=== PATIENT | female | born 1985 | race Caucasian/White ===

== ENCOUNTER 2017-11-21 15:13 | Inpatient (IN) ==
[2017-11-21] MEDS ORDERED: Ipratropium/Albuterol Neb 3 ML IH ONE ×2 (15:30→15:32)
[2017-11-21] MEDS ORDERED: methylPREDNISolone 125 MG/2 ML VIAL IVP ONE (15:30)
[2017-11-21] MEDS ORDERED: 0.9 % Sodium Chloride 1,000 ML IVC ONE ×2 (15:30→16:15)
[2017-11-21] MEDS ORDERED: Levofloxacin 750 MG/150 ML 750 MG/150 ML BAG IVPB ONE (15:57)
[2017-11-21] MEDS ORDERED: Isovue-370 500 ML INFUS..BTL IV ONE (15:57)
--- NOTE | 2017-11-21 16:15 | Emergency Department Note ---
Disposition Clinical Impression: Sepsis Qualifiers: Sepsis type: sepsis due to unspecified organism Qualified Code(s): A41.9 - Sepsis, unspecified organism Disposition: Admitted As Inpatient Referrals: Les Lane MD [Primary Care Provider] - General Adult HPI - General Chief complaint: ED Shortness of Breath/Dyspnea Stated complaint: IVÁN,Asthma Time Seen by Provider: 11/21/17 15:16 Source: patient Limitations: no limitations - History of Present Illness Pain Scale: 9 - Related Data Allergies Allergy/AdvReac Type Severity Reaction Status Date / Time cephalexin [From Keflex] Allergy Rash Verified 11/21/17 15:17 Hydromorphone [From Dilaudid] Allergy Anaphylaxis Verified 11/21/17 15:17 Penicillins [PCN] Allergy Rash Verified 11/21/17 15:17 Sulfa (Sulfonamide Allergy Rash Verified 11/21/17 15:17 Antibiotics) sulfamethoxazole Allergy Nausea Verified 11/21/17 15:17 [From Bactrim] trimethoprim [From Bactrim] Allergy Nausea Verified 11/21/17 15:17 Past Medical History - Past Medical History Medical history: Reports: asthma, diabetes, GERD, hyperlipidemia, syncope, other Psychiatric history: Reports: panic disorder 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 history: Reports: polycystic ovary syndrome - Social History Smoking Status: Never smoker Smokeless Tobacco Status: No Alcohol use: Reports: none Drug use: Reports: none Physical Exam - General Limitations: no limitations General appearance: alert, in no apparent distress Course Vital Signs Temperature 100.8 F H 11/21/17 15:16 Pulse Rate 125 11/21/17 15:16 Respiratory Rate 24 11/21/17 15:16 Blood Pressure 115/83 11/21/17 15:16 O2 Sat by Pulse Oximetry 90 11/21/17 15:16 Temperature 100.8 F H 11/21/17 15:59 Pulse Rate 125 11/21/17 15:59 Respiratory Rate 24 11/21/17 15:59 Blood Pressure 115/83 11/21/17 15:59 O2 Sat by Pulse Oximetry 93 11/21/17 16:08 Oxygen Delivery Oxygen Delivery Room Air Attestation Statement - Attestation Attestation: I examined this patient and my medical decision-making was reviewed with the Resident Physician. I agree with the documented findings, disposition and treatment plan as described except to the extent set forth below. 32 year old femael with history of asthma presents to the ED with complaints of dyspnea on exertional and fever of 103 at home and is febrile here today at 100.8 and states that she has been coughign and currently recovering from a right ear infection with levquin and is a borderline diabetic. Her right ear no longer hurts but she has been experincing icnreased cough and is wheezing. Patient states that she tried to take her daughgter neb treatments at home without help and took children motrin for therapy. Pamela states that she has not been recently admitted. She meets SIRS criteria and source is likely pumonary. She will be admitted to medicine, IVF and ABX starrted.
--- NOTE | 2017-11-21 16:16 | Emergency Department Note ---
Disposition Clinical Impression: Asthma with exacerbation Qualifiers: Asthma severity: severe Asthma persistence: persistent Qualified Code(s): J45.51 - Severe persistent asthma with (acute) exacerbation Sepsis Qualifiers: Sepsis type: sepsis due to unspecified organism Qualified Code(s): A41.9 - Sepsis, unspecified organism Disposition: Admitted As Inpatient Condition: Fair Referrals: Les Lane MD [Primary Care Provider] - Time of Disposition: 19:19 SOB HPI - General Chief Complaint: ED Shortness of Breath/Dyspnea Stated Complaint: IVÁN,Asthma Time Seen by Provider: 11/21/17 15:16 Nursing Notes Reviewed: Yes Vital Signs Reviewed: Yes - History of Present Illness 32-year-old female with severe persistent asthma presents with 2 day history of difficulty in breathing. She states that she had an asthma attack last night. She was unable to find her rescue inhaler. She used her daughter's nebulizer treatments. She had a fever of 103 at that point in time and took Motrin which relieved the fever. She woke up this morning and felt fine for one hour, but then had another episode of difficulty breathing. She took her temperature and it was 105. She was unable to swallow oral medications this point time, so she did Children's Motrin. She used her daughter's nebulizer treatments and that made her way to the emergency department. She was seen at [facility] on Monday and diagnosed with an ear infection on started on oral Levaquin. She is experiencing burning in her eyes and tearing "when my temperature goes up." She has chest pain due to the difficulty in breathing. She has a cough and feels like she needs to cough something up that he get stuck at the top of her throat. - Related Data Home Medications Medication Instructions Recorded Confirmed Esomeprazole Magnesium [Nexium] 40 mg PO DAILY 11/21/17 11/21/17 Fluticasone/Salmeterol [Advair 1 puff IH BID 11/21/17 11/21/17 250-50 Diskus] Gabapentin [Neurontin] 300 mg PO Q8H PRN 11/21/17 11/21/17 Meloxicam [Mobic] 7.5 mg PO Q12H 11/21/17 11/21/17 Mirabegron [Myrbetriq] 50 mg PO DAILY 11/21/17 11/21/17 Montelukast [Singulair] 10 mg PO DAILY 11/21/17 11/21/17 Multivit-Min/Iron/Folic/Lutein 1 tab PO DAILY 11/21/17 11/21/17 [Centrum Silver Women Tablet] Tiotropium [Spiriva] 1 puff IH DAILY 11/21/17 11/21/17 Allergies Allergy/AdvReac Type Severity Reaction Status Date / Time cephalexin [From Keflex] Allergy Rash Verified 11/21/17 15:17 Hydromorphone [From Dilaudid] Allergy Anaphylaxis Verified 11/21/17 15:17 Penicillins [PCN] Allergy Rash Verified 11/21/17 15:17 Sulfa (Sulfonamide Allergy Rash Verified 11/21/17 15:17 Antibiotics) sulfamethoxazole Allergy Nausea Verified 11/21/17 15:17 [From Bactrim] trimethoprim [From Bactrim] Allergy Nausea Verified 11/21/17 15:17 Constitutional: Reports: fever Eyes: Reports: other (burning, tearing) ENT ED: Denies: ear pain (resolved) Cardiovascular: Reports: chest pain Respiratory: Reports: cough, dyspnea. Denies: sputum production Gastrointestinal: Reports: diarrhea (chronic). Denies: abdominal pain, nausea, vomiting, constipation Genitourinary: Denies: dysuria, hematuria Integumentary: Denies: rash Neurological: Reports: headache, other (dizziness, presyncope) Past Medical History - Past Medical History Medical history: Reports: asthma, diabetes, GERD, hyperlipidemia, syncope, other Psychiatric history: Reports: panic disorder - Social History Smoking Status: Never smoker Smokeless Tobacco Status: No Alcohol use: Reports: none Drug use: Reports: none Physical Exam - General Limitations: no limitations General appearance: alert, in no apparent distress - Head Head exam: atraumatic, normocephalic, normal inspection - Eye Eye exam: Absent: normal appearance (tearing) - ENT ENT exam: mucous membranes moist - Neck Neck exam: Present: normal inspection - Chest Chest inspection: Present: normal inspection - Respiratory Respiratory exam: Present: respiratory distress (mild ), wheezes, prolonged expiratory phase, other (decreased breath sounds [due to limited air flow]) - Cardiovascular Cardiovascular exam: Present: normal rhythm, tachycardia - Abdominal Exam Abdominal exam: Present: soft, Non-Tender. Absent: tenderness, distention, guarding, rebound, rigidity - Extremities Exam Extremities exam: Present: normal inspection, other (posterior tibial pulses +2/ 4). Absent: pedal edema - Neurological Exam Neurological exam: Present: alert, oriented X3 - Psychiatric Psychiatric exam: Present: normal affect, normal mood - Skin Skin exam: Present: warm, dry, intact, normal color Course Vital Signs Temperature 100.8 F H 11/21/17 15:16 Pulse Rate 125 11/21/17 15:16 Respiratory Rate 24 11/21/17 15:16 Blood Pressure 115/83 11/21/17 15:16 O2 Sat by Pulse Oximetry 90 11/21/17 15:16 Temperature 100.8 F H 11/21/17 15:16 Pulse Rate 125 11/21/17 15:16 Respiratory Rate 24 11/21/17 15:16 Blood Pressure 115/83 11/21/17 15:16 O2 Sat by Pulse Oximetry 90 11/21/17 15:16 Oxygen Delivery Oxygen Delivery Room Air Shortness of Breath/Dyspnea - MDM Narrative Medical decision making narrative: 32 yo female with PMH of severe persistent asthma presents for asthma attacks x3 in the past 2 days with fever, Tmax 105. She is tachycardic, tachypneic, and hypoxic (O2 sat drops to 88% with walking around room) in ER. CTA negative for PE. Admit for sepsis and asthma exacerbation. On re-examination after 3 duoneb treatments [id number], her gross wheezing is increased due to more air movement. Dr. Adrian spoke with the hospitalist, Dr. Luis, who agreed to admit the patient. - Medical Records Medical records reviewed: Yes I reviewed the patient's medical records. - Lab Data Lab results reviewed: Yes I reviewed the patient's lab results. - Radiology Data Radiology results reviewed: Yes I reviewed the patient's radiology results. - EKG Data EKG shows normal: Reports: sinus rhythm, axis, intervals, QRS complexes, ST-T waves Rate: Reports: tachycardia Rhythm: Reports: NSR [place]/QRS: Reports: normal
[2017-11-21 16:20] LABS: Basophils % 0.3 %; Eosinophils # 0.4 K/mcL (0.0-0.6); Eosinophils % 3.3 %; Hematocrit 45.3 % (35.3-44.9); Hemoglobin 15.8 g/dL (11.5-15.4); Immature Granulocytes % 0.3 % (0-4); Lymphocytes # 1.5 K/mcL (0.6-4.6); Lymphocytes % 12.4 %; Mean Corpuscular HGB Conc 34.9 g/dL (31.6-35.5); Mean Corpuscular Hemoglobin 30.4 pg (28.0-33.3); Mean Corpuscular Volume 87.1 fL (83.0-100.0); Mean Platelet Volume 9.7 fL (9.4-12.4); Monocytes # 0.6 K/mcL (0.0-1.3); Monocytes % 4.8 %; Neutrophils # 9.7 K/mcL (1.6-8.9); Platelet Count 332 K/mcL (140-400); Red Cell Distribution Width 13.1 % (11.5-14.5); Segmented Neutrophils % 78.9 %
[2017-11-21 16:27] LABS: INR 1.3; Prothrombin Time 14.4 Seconds (9.4-12.1)
[2017-11-21 16:42] LABS: Troponin I < 0.03 ng/mL (< 0.04)
[2017-11-21 16:43] LABS: BUN/Creatinine Ratio 17 (6-26); Blood Urea Nitrogen 12 mg/dL (6-20); Calcium 9.3 mg/dL (8.6-10.3); Carbon Dioxide 24 mEq/L (23-29); Chloride 105 mEq/L (98-107); Glucose 151 mg/dL (70-105); Osmolality,Calculated 287 (280-300); Potassium 3.7 mEq/L (3.5-5.1); Sodium 137 mEq/L (136-145); eGFR For Non-African Americans > 60 (> 60)
[2017-11-21 16:44] LABS: Albumin 4.3 g/dL (3.5-5.7); Albumin/Globulin Ratio 1.3 (1.1-2.2); Bilirubin,Direct 0.1 mg/dL (0.0-0.2); Bilirubin,Indirect 0.3 mg/dL (0.0-1.2); Bilirubin,Total 0.4 mg/dL (0.3-1.0); Globulin 3.3 g/dL (2.4-3.5); Total Protein 7.6 g/dL (6.4-8.9)
[2017-11-21 17:53] LABS: Bilirubin,Urine Negative (Negative); Blood,Urine Moderate (Negative); Clarity,Urine Clear (Clear); Color,Urine Yellow (Yellow); Glucose,Urine (UA) Normal (Normal); Ketones,Urine Negative (Negative); Leukocyte Esterase,Urine Small (Negative); Nitrite,Urine Negative (Negative); Protein,Urine Negative (Neg-Trace); Specific Gravity,Urine > 1.030 (1.010-1.025); Urobilinogen,Urine Normal (Normal)
[2017-11-21 17:56] LABS: Bacteria,Urine None Seen per hpf (None-Few); Hyaline Casts,Urine None Seen per lpf (None-Few); RBC,Urine 15-30 per hpf (0-3); Squamous Epithelial Cell,Urine Many per lpf (None-Few)
[2017-11-21] MEDS ORDERED: Ipratropium/Albuterol Neb 3 ML IH SCH (20:00)
[2017-11-21] MEDS ORDERED: Naloxone 0.4 MG/ML INJ IVP PRN (21:13)
--- NOTE | 2017-11-21 21:22 | Internal Med History&Physical ---
Date of Encounter: 11/21/17 Time of Encounter: 21:21 Internal Medicine - H&P: HPI Chief complaint: Dyspnea/SOB History of present illness: 32 year old dominik with history of asthma presents to the ED with complaints of dyspnea on exertional and fever of 103 at home and is febrile here today at 100.8 and states that she has been coughign and currently recovering from a right ear infection with levquin and is a borderline diabetic. Her right ear no longer hurts but she has been experincing icnreased cough and is wheezing. Patient states that she tried to take her daughgter neb treatments at home without help and took children motrin for therapy. Pamela states that she has not been recently admitted. She meets SIRS criteria and source is likely pumonary. She will be admitted to medicine, IVF and ABX starrted. Past Med Surg Social Fam HX - Past Medical History Medical history: asthma, diabetes, GERD, hyperlipidemia, syncope, other Additional medical history: PCOS Psychiatric history: panic disorder - Past Surgical History Additional surgical history: Carple tunnel, Left Salpingoophorectomy, dental procudures, colonoscopy, fallopian tube removed - Social History Smoking Status: Never smoker Smokeless Tobacco Status: No Alcohol use: none Drug use: none Internal Medicine - H&P: Meds Esomeprazole Magnesium [Nexium] 40 mg PO DAILY 11/21/17 [History] Fluticasone/Salmeterol [Advair 250-50 Diskus] 1 puff IH BID 11/21/17 [History] Gabapentin [Neurontin] 300 mg PO Q8H PRN 11/21/17 [History] Meloxicam [Mobic] 7.5 mg PO Q12H 11/21/17 [History] Mirabegron [Myrbetriq] 50 mg PO DAILY 11/21/17 [History] Montelukast [Singulair] 10 mg PO DAILY 11/21/17 [History] Multivit-Min/Iron/Folic/Lutein [Centrum Silver Women Tablet] 1 tab PO DAILY [History] Tiotropium [Spiriva] 1 puff IH DAILY 11/21/17 [History] 3 Allergy/AdvReac Type Severity Reaction Status Date / Time cephalexin [From Keflex] Allergy Rash Verified 11/21/17 15:17 Hydromorphone [From Dilaudid] Allergy Anaphylaxis Verified 11/21/17 15:17 Penicillins [PCN] Allergy Rash Verified 11/21/17 15:17 Sulfa (Sulfonamide Allergy Rash Verified 11/21/17 15:17 Antibiotics) sulfamethoxazole Allergy Nausea Verified 11/21/17 15:17 [From Bactrim] trimethoprim [From Bactrim] Allergy Nausea Verified 11/21/17 15:17 All Systems PM: A 10-system review of systems was performed and is negative for pertinent findings except as documented above in the HPI. - Constitutional Vitals: Temp Pulse Resp BP Pulse Ox 99.6 F 112 26 104/59 94 11/21/17 21:06 11/21/17 21:06 11/21/17 21:06 11/21/17 21:06 11/21/17 21:06 Exam: General: Alert and oriented 3 lying in bed in mild distress Skin:Normal color, no rash, no lesions. HEENT:EOM, pupils equal, round and reactive. Cardiovascular:Normal S1 & S2, no rubs, murmurs or gallops. No JVD. Pulse regular. Lungs:Normal breath sounds, no wheezes or crackles. Abdomen:Soft, non-tender, no rigidity. Extremities:No deformity, no edema or tenderness, no joint swelling or clubbing. Neurological:Normal cognition and motor skills. Pulses:Carotid and radial pulses normal +2. Rest of the physical exam is non contributory Internal Med - H&P Results - Labs CBC & Chem 7: 11/22/17 04:16 11/22/17 04:16 - Assessment and plan (1) Leukocytosis, unspecified Current Visit: Yes Status: Acute Qualifiers: Qualified Code(s): D72.829 - Elevated white blood cell count, unspecified (2) Asthma with exacerbation Current Visit: Yes Status: Acute Qualifiers: Asthma severity: severe Asthma persistence: persistent Qualified Code(s) : J45.51 - Severe persistent asthma with (acute) exacerbation - Time Spent With Patient Total time spent is greater than 50% in coordination of care (as documented) at patient's floor/unit and/or counseling patient:
[2017-11-21] MEDS ORDERED: *HR* Dextrose 50 % in Water (Syg) 50 ML SYRINGE IVP PRN (21:30)
[2017-11-21] MEDS ORDERED: Dextrose Gel 15 GM/37.5 ML TUBE PO PRN ×2 (21:30)
[2017-11-21] MEDS ORDERED: Gabapentin 300 MG CAPSULE PO PRN (21:30)
[2017-11-21] MEDS ORDERED: D5% in Water 1,000 ML IVC PRN (21:30)
[2017-11-21] MEDS: *HR* Heparin 5,000 UNIT/ML VIAL SQ SCH (22:08)
[2017-11-21] MEDS: 0.9 % Sodium Chloride 1,000 ML IVC SCH (22:08)
[2017-11-21] MEDS ORDERED: Insulin LISPRO 300 UNITS/3 ML VIAL SQ SCH (22:43)
[2017-11-21] MEDS: MethylPREDNISolone 40 MG/ML VIAL IVP SCH (23:11)
[2017-11-22] MEDS ORDERED: Insulin LISPRO 300 UNITS/3 ML VIAL SQ SCH
[2017-11-22] MEDS ORDERED: Albuterol 2.5 MG/3 ML NEBULIZER IH PRN (03:35)
[2017-11-22 04:57] LABS: Hematocrit 42.5 % (35.3-44.9); Hemoglobin 14.6 g/dL (11.5-15.4); Mean Corpuscular HGB Conc 34.4 g/dL (31.6-35.5); Mean Corpuscular Volume 87.3 fL (83.0-100.0); Mean Platelet Volume 9.9 fL (9.4-12.4); Platelet Count 317 K/mcL (140-400); Red Blood Count 4.87 M/mcL (3.82-4.97); Red Cell Distribution Width 13.1 % (11.5-14.5)
[2017-11-22] MEDS: 0.9 % Sodium Chloride 1,000 ML IVC SCH (04:58)
[2017-11-22] MEDS: *HR* Heparin 5,000 UNIT/ML VIAL SQ SCH (04:58)
[2017-11-22] MEDS: MethylPREDNISolone 40 MG/ML VIAL IVP SCH ×2 (04:59→12:09)
[2017-11-22 05:06] LABS: Alanine Aminotransferase 13 Units/L (7-52); Albumin 3.9 g/dL (3.5-5.7); Albumin/Globulin Ratio 1.3 (1.1-2.2); Alkaline Phosphatase 55 Units/L (34-104); Aspartate Amino Transferase 13 Units/L (13-39); BUN/Creatinine Ratio 15 (6-26); Bilirubin,Total 0.4 mg/dL (0.3-1.0); Blood Urea Nitrogen 10 mg/dL (6-20); Calcium 8.8 mg/dL (8.6-10.3); Carbon Dioxide 20 mEq/L (23-29); Chloride 107 mEq/L (98-107); Glucose 205 mg/dL (70-105); Osmolality,Calculated 291 (280-300); Potassium 3.6 mEq/L (3.5-5.1); Sodium 138 mEq/L (136-145); Total Protein 6.9 g/dL (6.4-8.9); eGFR For Non-African Americans > 60 (> 60)
[2017-11-22] MEDS: Ipratropium/Albuterol Neb 3 ML IH SCH ×2 (07:33→11:26)
[2017-11-22] MEDS: Insulin LISPRO 300 UNITS/3 ML VIAL SQ SCH ×2 (08:13→12:09)
[2017-11-22 10:50] VITALS: BP 107/74
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
[2017-11-22] MEDS ORDERED: Acetaminophen 325 MG TABLET PO PRN (12:34)
--- NOTE | 2017-11-22 16:58 | Electrocardiograph Report ---
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
== END 2017-11-22 13:18 | disposition home or self-care (01) | DRG 202 ==
LOC: EMEROOARM 15:13 → 3BNU 15:13
PROVIDERS: ADMIT Pediatrics; ATTEND Pediatrics

== ENCOUNTER 2020-08-07 14:12 | Inpatient (IN) ==
[2020-08-07 15:01] LABS: Basophils % 0.5 %; Eosinophils % 0.4 %; Hematocrit 46.3 % (35.3-44.9); Hemoglobin 15.9 g/dL (11.5-15.4); Immature Granulocytes % 0.4 % (0-4); Lymphocytes # 1.8 K/mcL (0.6-4.6); Lymphocytes % 32.9 %; Mean Corpuscular HGB Conc 34.3 g/dL (31.6-35.5); Mean Corpuscular Hemoglobin 29.8 pg (28.0-33.3); Mean Corpuscular Volume 86.7 fL (83.0-100.0); Mean Platelet Volume 10.4 fL (9.4-12.4); Monocytes # 0.7 K/mcL (0.0-1.3); Monocytes % 11.6 %; Platelet Count 221 K/mcL (140-400); Red Blood Count 5.34 M/mcL (3.82-4.97); Red Cell Distribution Width 12.7 % (11.5-14.5); Segmented Neutrophils % 54.2 %; White Blood Count 5.6 K/mcL (4.3-11.1)
[2020-08-07 15:10] LABS: BUN/Creatinine Ratio 20 (6-26); Blood Urea Nitrogen 16 mg/dL (6-20); Calcium 9.1 mg/dL (8.6-10.3); Carbon Dioxide 26 mEq/L (23-29); Chloride 99 mEq/L (98-107); Glucose 194 mg/dL (70-105); Osmolality,Calculated 284 (280-300); Potassium 3.6 mEq/L (3.5-5.1); Sodium 134 mEq/L (136-145); eGFR For African Americans > 60 (> 60); eGFR For Non-African Americans > 60 (> 60)
[2020-08-07] MEDS ORDERED: Benzonatate 100 MG CAPSULE PO PRN (16:13)
[2020-08-07] MEDS ORDERED: Naloxone 0.4 MG/ML INJ IVP PRN (16:20)
[2020-08-07] MEDS ORDERED: Ondansetron 4 MG/2 ML VIAL IVP PRN (16:20)
[2020-08-07] MEDS ORDERED: *HR* Dextrose 50 % in Water (Vial) 50 ML VIAL IVP PRN (16:22)
[2020-08-07] MEDS ORDERED: Dextrose Gel 15 GM/37.5 ML TUBE PO PRN ×2 (16:22)
[2020-08-07] MEDS ORDERED: D5% in Water 1,000 ML IVC PRN (16:22)
[2020-08-07 16:38] LABS: C-Reactive Protein 11 mg/L (Less than 10); Lactate Dehydrogenase 204 Units/L (140-271)
[2020-08-07 16:56] LABS: Ferritin 153 ng/mL (10-120)
[2020-08-07] MEDS: Insulin LISPRO 300 UNITS/3 ML VIAL SUBQ SCH ×2 (17:50→21:08)
[2020-08-07] MEDS: Budesonide/Formoterol 160/4.5 1 PUFF INH IH SCH (20:50)
[2020-08-07] MEDS: Ipratropium 1 PUFF INHALER IH SCH (20:50)
[2020-08-08] MEDS: Ipratropium 1 PUFF INHALER IH SCH ×7 (00:04→23:42)
[2020-08-08 05:14] LABS: Basophils % 0.3 %; Hematocrit 47.5 % (35.3-44.9); Hemoglobin 15.6 g/dL (11.5-15.4); Immature Granulocytes % 0.5 % (0-4); Lymphocytes # 0.8 K/mcL (0.6-4.6); Lymphocytes % 22.6 %; Mean Corpuscular HGB Conc 32.8 g/dL (31.6-35.5); Mean Corpuscular Hemoglobin 28.7 pg (28.0-33.3); Mean Corpuscular Volume 87.5 fL (83.0-100.0); Mean Platelet Volume 10.4 fL (9.4-12.4); Monocytes # 0.3 K/mcL (0.0-1.3); Monocytes % 9.2 %; Neutrophils # 2.5 K/mcL (1.6-8.9); Platelet Count 220 K/mcL (140-400); Red Blood Count 5.43 M/mcL (3.82-4.97); Red Cell Distribution Width 12.7 % (11.5-14.5); Segmented Neutrophils % 67.4 %; White Blood Count 3.7 K/mcL (4.3-11.1)
[2020-08-08] MEDS: *HR* Enoxaparin 40 MG/0.4 ML SYRINGE SQ SCH (06:46)
[2020-08-08] MEDS: Budesonide/Formoterol 160/4.5 1 PUFF INH IH SCH ×2 (08:05→20:21)
[2020-08-08 08:06] LABS: Alanine Aminotransferase 44 Units/L (7-52); Albumin 3.9 g/dL (3.5-5.7); Albumin/Globulin Ratio 1.1 (1.1-2.2); Alkaline Phosphatase 67 Units/L (34-104); Aspartate Amino Transferase 30 Units/L (13-39); BUN/Creatinine Ratio 22 (6-26); Bilirubin,Total 0.4 mg/dL (0.3-1.0); Blood Urea Nitrogen 14 mg/dL (6-20); Calcium 9.2 mg/dL (8.6-10.3); Carbon Dioxide 25 mEq/L (23-29); Chloride 101 mEq/L (98-107); Globulin 3.5 g/dL (2.4-3.5); Glucose 202 mg/dL (70-105); Osmolality,Calculated 286 (280-300); Potassium 4.1 mEq/L (3.5-5.1); Sodium 135 mEq/L (136-145); Total Protein 7.4 g/dL (6.4-8.9); eGFR For African Americans > 60 (> 60); eGFR For Non-African Americans > 60 (> 60)
[2020-08-08] MEDS: Cholecalciferol (D-3) 1,000 UNIT (25MCG) TABLET PO SCH (08:34)
[2020-08-08] MEDS: Loratadine 10 MG TABLET PO SCH (08:34)
[2020-08-08] MEDS: Venlafaxine XR (24 HR) 37.5 MG CAP.ER.24H PO SCH (08:35)
[2020-08-08] MEDS: Insulin LISPRO 300 UNITS/3 ML VIAL SUBQ SCH ×4 (08:39→21:54)
[2020-08-08] MEDS: MetroNIDAZOLE 500 MG/100 ML 500 MG/100 ML BAG IVPB SCH ×2 (12:03→21:53)
[2020-08-08] MEDS: cefTRIAXone 1,000 MG in Water for inj. (sterile) 10 ML IVP SCH (12:06)
[2020-08-08] MEDS: Benzonatate 100 MG CAPSULE PO SCH ×3 (12:06→21:53)
[2020-08-08] MEDS: Tiotropium 10 INH DOSE IH SCH (15:40)
[2020-08-09] MEDS: Ipratropium 1 PUFF INHALER IH SCH ×6 (03:24→23:53)
[2020-08-09] MEDS: MetroNIDAZOLE 500 MG/100 ML 500 MG/100 ML BAG IVPB SCH ×3 (04:05→21:17)
[2020-08-09] MEDS: *HR* Enoxaparin 40 MG/0.4 ML SYRINGE SQ SCH (04:06)
[2020-08-09] MEDS: Budesonide/Formoterol 160/4.5 1 PUFF INH IH SCH ×2 (07:53→19:38)
[2020-08-09] MEDS: Tiotropium 10 INH DOSE IH SCH (07:53)
[2020-08-09] MEDS: cefTRIAXone 1,000 MG in Water for inj. (sterile) 10 ML IVP SCH (08:33)
[2020-08-09] MEDS: Venlafaxine XR (24 HR) 37.5 MG CAP.ER.24H PO SCH (08:37)
[2020-08-09] MEDS: Benzonatate 100 MG CAPSULE PO SCH ×3 (08:37→21:18)
[2020-08-09] MEDS: Loratadine 10 MG TABLET PO SCH (08:37)
[2020-08-09] MEDS: Cholecalciferol (D-3) 1,000 UNIT (25MCG) TABLET PO SCH (08:37)
[2020-08-09] MEDS: Acetaminophen 325 MG TABLET PO PRN ×2 (08:38→17:43)
[2020-08-09] MEDS: Insulin LISPRO 300 UNITS/3 ML VIAL SUBQ SCH ×4 (08:42→21:49)
[2020-08-09 10:31] LABS: Basophils % 0.1 %; Hematocrit 44.6 % (35.3-44.9); Hemoglobin 14.6 g/dL (11.5-15.4); Immature Granulocytes % 0.5 % (0-4); Lymphocytes % 7.6 %; Mean Corpuscular HGB Conc 32.7 g/dL (31.6-35.5); Mean Corpuscular Hemoglobin 28.9 pg (28.0-33.3); Mean Corpuscular Volume 88.1 fL (83.0-100.0); Mean Platelet Volume 10.6 fL (9.4-12.4); Monocytes # 0.5 K/mcL (0.0-1.3); Monocytes % 3.8 %; Neutrophils # 11.5 K/mcL (1.6-8.9); Platelet Count 239 K/mcL (140-400); Red Blood Count 5.06 M/mcL (3.82-4.97); Red Cell Distribution Width 12.9 % (11.5-14.5)
[2020-08-09 10:33] LABS: White Blood Count 13.1 K/mcL (4.3-11.1)
[2020-08-09 10:49] LABS: Alanine Aminotransferase 36 Units/L (7-52); Albumin 3.7 g/dL (3.5-5.7); Albumin/Globulin Ratio 1.2 (1.1-2.2); Alkaline Phosphatase 60 Units/L (34-104); Aspartate Amino Transferase 25 Units/L (13-39); BUN/Creatinine Ratio 19 (6-26); Bilirubin,Total 0.5 mg/dL (0.3-1.0); Blood Urea Nitrogen 18 mg/dL (6-20); Calcium 8.7 mg/dL (8.6-10.3); Carbon Dioxide 27 mEq/L (23-29); Chloride 100 mEq/L (98-107); Globulin 3.2 g/dL (2.4-3.5); Glucose 183 mg/dL (70-105); Osmolality,Calculated 285 (280-300); Potassium 3.9 mEq/L (3.5-5.1); Sodium 134 mEq/L (136-145); Total Protein 6.9 g/dL (6.4-8.9); eGFR For African Americans > 60 (> 60); eGFR For Non-African Americans > 60 (> 60)
[2020-08-10] MEDS: Ipratropium 1 PUFF INHALER IH SCH ×6 (03:44→23:24)
[2020-08-10] MEDS: *HR* Enoxaparin 40 MG/0.4 ML SYRINGE SQ SCH (05:17)
[2020-08-10] MEDS: MetroNIDAZOLE 500 MG/100 ML 500 MG/100 ML BAG IVPB SCH ×3 (05:17→20:56)
[2020-08-10 05:57] LABS: Basophils % 0.1 %; Hematocrit 42.6 % (35.3-44.9); Hemoglobin 14.4 g/dL (11.5-15.4); Immature Granulocytes % 0.4 % (0-4); Lymphocytes # 1.3 K/mcL (0.6-4.6); Lymphocytes % 14.4 %; Mean Corpuscular HGB Conc 33.8 g/dL (31.6-35.5); Mean Corpuscular Hemoglobin 29.7 pg (28.0-33.3); Mean Corpuscular Volume 87.8 fL (83.0-100.0); Mean Platelet Volume 10.3 fL (9.4-12.4); Monocytes # 0.5 K/mcL (0.0-1.3); Monocytes % 5.6 %; Neutrophils # 7.2 K/mcL (1.6-8.9); Platelet Count 218 K/mcL (140-400); Red Blood Count 4.85 M/mcL (3.82-4.97); Red Cell Distribution Width 12.8 % (11.5-14.5); Segmented Neutrophils % 79.5 %; White Blood Count 9.1 K/mcL (4.3-11.1)
[2020-08-10 06:18] LABS: BUN/Creatinine Ratio 22 (6-26); Blood Urea Nitrogen 14 mg/dL (6-20); Calcium 8.7 mg/dL (8.6-10.3); Carbon Dioxide 28 mEq/L (23-29); Chloride 100 mEq/L (98-107); Glucose 134 mg/dL (70-105); Osmolality,Calculated 280 (280-300); Potassium 3.7 mEq/L (3.5-5.1); Sodium 134 mEq/L (136-145); eGFR For African Americans > 60 (> 60); eGFR For Non-African Americans > 60 (> 60)
[2020-08-10] MEDS: Insulin LISPRO 300 UNITS/3 ML VIAL SUBQ SCH ×4 (07:44→21:12)
[2020-08-10] MEDS: cefTRIAXone 1,000 MG in Water for inj. (sterile) 10 ML IVP SCH (09:37)
[2020-08-10] MEDS: Cholecalciferol (D-3) 1,000 UNIT (25MCG) TABLET PO SCH (09:37)
[2020-08-10] MEDS: Benzonatate 100 MG CAPSULE PO SCH ×3 (09:37→20:56)
[2020-08-10] MEDS: Venlafaxine XR (24 HR) 37.5 MG CAP.ER.24H PO SCH (09:37)
[2020-08-10] MEDS: Loratadine 10 MG TABLET PO SCH (09:37)
[2020-08-10] MEDS: Budesonide/Formoterol 160/4.5 1 PUFF INH IH SCH ×2 (11:23→19:35)
[2020-08-10] MEDS: Tiotropium 10 INH DOSE IH SCH (11:28)
[2020-08-10] MEDS: Acetaminophen 325 MG TABLET PO PRN ×2 (12:00→21:42)
[2020-08-11] MEDS: MetroNIDAZOLE 500 MG/100 ML 500 MG/100 ML BAG IVPB SCH (03:35)
[2020-08-11] MEDS: Ipratropium 1 PUFF INHALER IH SCH ×3 (03:47→12:11)
[2020-08-11] MEDS: *HR* Enoxaparin 40 MG/0.4 ML SYRINGE SQ SCH (05:48)
[2020-08-11 06:07] LABS: Basophils % 0.1 %; Hemoglobin 14.4 g/dL (11.5-15.4); Immature Granulocytes % 0.4 % (0-4); Lymphocytes # 1.2 K/mcL (0.6-4.6); Lymphocytes % 11.7 %; Mean Corpuscular HGB Conc 32.7 g/dL (31.6-35.5); Mean Corpuscular Hemoglobin 29.1 pg (28.0-33.3); Mean Corpuscular Volume 88.9 fL (83.0-100.0); Mean Platelet Volume 10.6 fL (9.4-12.4); Monocytes # 0.5 K/mcL (0.0-1.3); Monocytes % 4.7 %; Neutrophils # 8.3 K/mcL (1.6-8.9); Platelet Count 250 K/mcL (140-400); Red Blood Count 4.95 M/mcL (3.82-4.97); Red Cell Distribution Width 12.7 % (11.5-14.5); Segmented Neutrophils % 83.1 %
[2020-08-11 06:34] LABS: BUN/Creatinine Ratio 22 (6-26); Blood Urea Nitrogen 15 mg/dL (6-20); Carbon Dioxide 26 mEq/L (23-29); Chloride 99 mEq/L (98-107); Glucose 145 mg/dL (70-105); Osmolality,Calculated 287 (280-300); Potassium 3.8 mEq/L (3.5-5.1); Sodium 137 mEq/L (136-145); eGFR For African Americans > 60 (> 60); eGFR For Non-African Americans > 60 (> 60)
[2020-08-11 07:13] VITALS: BP 115/74
[2020-08-11] MEDS: Insulin LISPRO 300 UNITS/3 ML VIAL SUBQ SCH (07:36)
[2020-08-11] MEDS: Budesonide/Formoterol 160/4.5 1 PUFF INH IH SCH (08:16)
[2020-08-11] MEDS: Tiotropium 10 INH DOSE IH SCH (08:18)
[2020-08-11] MEDS: cefTRIAXone 1,000 MG in Water for inj. (sterile) 10 ML IVP SCH (09:00)
[2020-08-11] MEDS: Venlafaxine XR (24 HR) 37.5 MG CAP.ER.24H PO SCH (09:00)
[2020-08-11] MEDS: Benzonatate 100 MG CAPSULE PO SCH (09:01)
[2020-08-11] MEDS: Loratadine 10 MG TABLET PO SCH (09:01)
[2020-08-11] MEDS: Cholecalciferol (D-3) 1,000 UNIT (25MCG) TABLET PO SCH (09:01)
== END 2020-08-11 14:44 | disposition home or self-care (01) | DRG 177 ==
LOC: 3BNU 14:12 → EMEROOARM 14:12 → SUATTDRO 16:27 → 3BNU 17:32
PROVIDERS: ADMIT Student in an Organized Health Care Education/Training Program; ATTEND Family Medicine